=== PATIENT | male | born 2000 | race Caucasian/White ===

== ENCOUNTER 2022-03-03 14:49 | Emergency (ER) | payer OTHER, SELFPAY ==
[2022-03-03 14:55] VITALS: BP 124/75; PULSE 68; RESP 14; TEMP 37.1; O2SAT 100
--- NOTE | 2022-03-03 16:46 | ED.URI ---
HPI - URI/Sore Throat General Chief Complaint: Upper Respiratory Infection Stated Complaint: Cough headaches chills fatigue Time Seen by Provider: 03/03/22 16:45 Source: patient, RN notes reviewed and old records reviewed Mode of arrival: ambulatory Limitations: no limitations History of Present Illness HPI Narrative: 21 year old male presents to express care with complaints of headache, productive cough, hot flashes and sore throat and feeling weak for past 5 days. Patient denies any known fevers, has been taking Ibuprofen, NyQuil and cough drops for his symptoms. Patient reports that he has had COVID vaccinations X2 and also flu shot, reports had COVID in August of 2021. MD elicited complaint: cough, sore throat and other (headaches and feels weak) Onset (ago): day(s) (5) Pain scale (0-10): 6 Treatments prior to arrival: ibuprofen and other (NyQuil and cough drops) Related Data Home Medications Medication Instructions Recorded Confirmed fluoxetine 40 mg capsule 40 mg PO DAILY 03/03/22 03/03/22 Allergies Allergy/AdvReac Type Severity Reaction Status Date / Time No Known Allergies Allergy Verified 03/03/22 15:11 Review of Systems Review of Systems: CONSTITUTIONAL: Denies malaise, chills, sweats, or fever.reports feel weak and has had hot flashes EYES: Denies visual changes, redness, or discharge. ENT: Reports rhinorrhea, congestion, sinus pain, no otalgia positive for sore throat. CARDIOVASCULAR: Denies chest pain, palpitations, or edema. RESPIRATORY: Reports cough.? Denies dyspnea. GASTROINTESTINAL: Denies abdominal pain, nausea, vomiting, diarrhea SKIN: Denies rash or itching. MUSCULOSKELETAL: Denies myalgia. NEUROLOGIC:Reports headache. All systems reviewed & are unremarkable except as noted in HPI and below PMFSH Past Medical History Medical History (Updated 03/07/22 @ 08:32 by Yamilet Ray NP) Anxiety Asthma as child Surgical History Surgical History (Updated 03/07/22 @ 08:30 by Yamilet Ray NP) No history of previous surgery Social History Social History (Updated 03/07/22 @ 08:33 by Yamilet Ray NP) Smoking status: Never smoker Alcohol intake: unknown Substance use type: marijuana Living arrangements: with family Gender identity (if verbalized by the patient): Male Comments At time of signature, agree with nursing past medical, surgical, social and family history. There is no relevant family history pertinent to the presenting complaint Exam Narrative: GENERAL: Well-appearing, well-nourished, and in no acute distress. HEAD: Normocephalic EYES: PERRLA, conjunctivae clear ENT: Nares clear, turbinates edematous and erythematous, clear discharge. Mucous membranes moist. TM pearly waller with dull light reflex bilaterally; no tragal tenderness. Oropharynx erythematous without lesions. Tonsils not enlarged and without exudate, no drooling, no hoarseness, no trismus, uvula midline. post nasal drainage NECK: Supple. No lymphadenopathy CHEST: Clear to auscultation, breath sounds equal. No wheezing, rhonchi, rales, or stridor. No respiratory distress, speaks in full sentences.productive cough, SAO2 100% on room air HEART: Regular rate and rhythm. No murmur heard. SKIN: Warm, dry, no rash. NEURO: Alert and oriented x3. PSYCH: Normal mood and affect Course Course Emergency Course: Patient is aware of diagnosis, understands and agrees to treatment plan.? Anticipatory guidance given.? Patient agrees to follow-up as directed and is aware of reasons to seek care at the emergency department. Portions of this record may have been created with voice recognition software Level of Care: Express Care Visit Vital Signs Vital signs: Vital Signs Temperature 37.1 C 03/03/22 14:55 Pulse Rate 68 03/03/22 14:55 Respiratory Rate 14 03/03/22 14:55 Blood Pressure 124/75 03/03/22 14:55 Pulse Oximetry 100 03/03/22 14:55 Oxygen Delivery Kalina
== END 2022-03-03 17:01 | disposition home or self-care (01) ==
PROVIDERS: Emergency Provider Registered Nurse; PCP Family Medicine
DX: J06.9 Acute upper respiratory infection, unspecified (principal)
CPT/HCPCS: 87804; 99213; G0463

== ENCOUNTER 2022-05-26 10:48 | Emergency (ER) | payer OTHER, SELFPAY ==
[2022-05-26 10:53] VITALS: BP 120/67; PULSE 68; RESP 16; TEMP 37; O2SAT 100
[2022-05-26 11:08] VITALS: BP 120/67; PULSE 68; RESP 16; TEMP 37; O2SAT 100
--- NOTE | 2022-05-26 11:45 | ED.MALEGU ---
HPI - Male Genitourinary General Chief complaint: Urogenital-Male Stated complaint: abdominal pain; nausea, dysuria Time Seen by Provider: 05/26/22 11:46 Source: patient, RN notes reviewed and old records reviewed Mode of arrival: ambulatory Limitations: no limitations History of Present Illness HPI Narrative: 21 year old male with complaints of some abdominal pain in mid right sided abdomen, nausea and dysuria since awakening this morning. Patient reports that he has some frequency and voiding in small amount. Patient denies any visualized blood in urine, denies any fevers,chills or sweats. Patient rports no penis lesions or any penis discharge, denies any concern for STD's. Patient states that he has been taking Advil for his symptoms. MD Complaint: dysuria and other (abdominal discomfort) Onset (ago): hour(s) (this morning) Related Data Home Medications Medication Instructions Recorded Confirmed fluoxetine 40 mg capsule 40 mg PO DAILY 03/03/22 05/26/22 Allergies Allergy/AdvReac Type Severity Reaction Status Date / Time No Known Allergies Allergy Verified 05/26/22 11:08 Review of Systems Review of Systems: CONSTITUTIONAL: Denies fever, chills, or sweats. CARDIOVASCULAR: Denies chest pain, palpitations, or edema. RESPIRATORY: Denies cough or dyspnea. GASTROINTESTINAL:mid right lower abdominal pain, nausea,no vomiting, or diarrhea. GENITOURINARY: Reports dysuria, frequency, urgency. Denies flank pain or hematuria. SKIN: Denies rash or itching. MUSCULOSKELETAL: Denies back pain or myalgia. Denies CVA tenderness NEUROLOGIC: Denies headache All systems reviewed & are unremarkable except as noted in HPI and below [facility] Past Medical History Medical History (Updated 05/29/22 @ 07:06 by Yamilet Ray NP) Anxiety Asthma as child IBS (irritable bowel syndrome) Surgical History Surgical History (Updated 03/07/22 @ 08:30 by Yamilet Ray NP) No history of previous surgery Family History Family History (Updated 05/29/22 @ 07:06 by Yamilet Ray NP) Father Kidney stones Social History Social History (Updated 03/07/22 @ 08:33 by Yamilet Ray NP) Smoking status: Never smoker Alcohol intake: unknown Substance use type: marijuana Living arrangements: with family Gender identity (if verbalized by the patient): Male Comments At time of signature, agree with nursing past medical, surgical, social and family history. There is no relevant family history pertinent to the presenting complaint Exam Narrative: GENERAL: Well-appearing, well-nourished, and in no acute distress. HEAD: Normocephalic, atraumatic. NECK: Supple. CHEST: Clear to auscultation. No respiratory distress.SAO2 100% on room air HEART: Regular rate and rhythm. No murmur heard. Normal peripheral pulses. ABDOMEN: Soft, nontender on palpation, no McBurney point tenderness, nondistended, normal active bowel sounds. No CVA tenderness, reports dysuria EXTREMITIES: Normal range of motion. No edema. SKIN: Warm, dry, no rash. NEURO: No focal deficits. Alert and oriented x3. Course Course Emergency Course: Patient is aware of diagnosis, understands and agrees to treatment plan.? Anticipatory guidance given.? Patient agrees to follow-up as directed and is aware of reasons to seek care at the emergency department. Portions of this record may have been created with voice recognition software Level of Care: Express Care Visit Vital Signs Vital signs: Vital Signs Temperature 37.0 C 05/26/22 10:53 Pulse Rate 68 05/26/22 10:53 Respiratory Rate 16 05/26/22 10:53 Blood Pressure 120/67 05/26/22 10:53 Pulse Oximetry 100 05/26/22 10:53 Oxygen Delivery Room Air 05/26/22 10:53 Temperature 37.0 C 05/26/22 11:08 Pulse Rate 68 05/26/22 11:08 Respiratory Rate 16 05/26/22 11:08 Blood Pressure 120/67 05/26/22 11:08 Pulse Oximetry 100 05/26/22 11:08 Oxygen Delivery Room Air 05/26/22 11:08
== END 2022-05-26 12:03 | disposition home or self-care (01) ==
PROVIDERS: Emergency Provider Registered Nurse; PCP Family Medicine
DX: R30.0 Dysuria (principal); R10.9 Unspecified abdominal pain
CPT/HCPCS: 81003; 87086; 99213; G0463

== ENCOUNTER 2022-08-04 09:48 | Emergency (ER) | payer OTHER, SELFPAY ==
[2022-08-04 09:53] VITALS: BP 120/65; PULSE 54; RESP 14; TEMP 36.6; O2SAT 100
--- NOTE | 2022-08-04 10:05 | ED.NAVMDI ---
HPI - Nausea/Vomiting/Diarrhea General Chief complaint: Nausea/Vomiting/Diarrhea Stated complaint: Nausea/Diarrhea Time Seen by Provider: 08/04/22 10:06 Source: patient and RN notes reviewed History of Present Illness HPI Narrative: Patient is a 22-year-old male who presents to urgent care with complaints of nausea and diarrhea. Patient states he woke up with the pain this morning at 4:00 a.m. and symptoms have nearly resolved with some slight side pain. Patient believes he has food poisoning from eating [employer] and states that he needs a work note. Patient has been taking Advil for the pain. Currently denies any nausea or fever. No other acute complaints. No acute distress noted. Patient aware of the plan of care. Some parts of this dictation were generated by voice recognition software and may contain typographical and/or grammatical inaccuracies. Related Data Allergies Allergy/AdvReac Type Severity Reaction Status Date / Time No Known Allergies Allergy Verified 08/04/22 10:00 Review of Systems Review of Systems: CONSTITUTIONAL: Denies fever, chills, or sweats. EYES: Denies visual changes, redness, or discharge. ENT: Denies rhinorrhea, congestion, sore throat, or otalgia. CARDIOVASCULAR: Denies chest pain, palpitations, or edema. RESPIRATORY: Denies cough or dyspnea. GASTROINTESTINAL: Reports of mild abdominal discomfort with resolved nausea and diarrhea GENITOURINARY: Denies dysuria or hematuria. SKIN: Denies rash or itching. MUSCULOSKELETAL: Denies back pain, joint pain, or myalgia. NEUROLOGIC: Denies headache, numbness, or weakness. All other systems reviewed are negative, except as documented in HPI. [facility] Past Medical History Medical History (Updated 08/04/22 @ 10:36 by SARAHI Angeles) Anxiety Asthma as child IBS (irritable bowel syndrome) Surgical History Surgical History (Updated 03/07/22 @ 08:30 by Yamilet Ray NP) No history of previous surgery Family History Family History (Updated 05/29/22 @ 07:06 by Yamilet Ray NP) Father Kidney stones Social History Social History (Updated 03/07/22 @ 08:33 by Yamilet Ray NP) Smoking status: Never smoker Alcohol intake: unknown Substance use type: marijuana Living arrangements: with family Gender identity (if verbalized by the patient): Male Comments At the time of my signature, I reviewed and agree with the nursing past medical, surgical, social, and family history. There is no relevant family history pertinent to the patient complaint. Exam Narrative: GENERAL: This is a well-nourished, well-developed patient, in no apparent distress. HEAD: normocephalic, atraumatic. EYES: PERRL. Sclera clear/white. Vision is grossly intact. EARS: External ears normal NOSE: External nose normal with no obvious nasal discharge, nares without redness, no rhinorrhea. THROAT: Mucous membranes moist NECK: Neck supple GASTROINTESTINAL: Abdomen soft, non-tender, nondistended. Bowel sounds are hyperactive. SKIN: warm, intact with no suspicious lesions or rash, good texture and turgor. NEURO: awake, alert, and oriented to person, place and time. There were no obvious focal neurologic abnormalities. EXTREMITIES: No clubbing, cyanosis, or edema. Course Course Level of Care: Express Care Visit Vital Signs Vital signs: Vital Signs Temperature 97.8 F 08/04/22 09:53 Pulse Rate 54 L 08/04/22 09:53 Respiratory Rate 14 08/04/22 09:53 Blood Pressure 120/65 08/04/22 09:53 Pulse Oximetry 100 08/04/22 09:53 Oxygen Delivery Room Air 08/04/22 09:53 Temperature 97.8 F 08/04/22 09:53 Pulse Rate 54 L 08/04/22 09:53 Respiratory Rate 14 08/04/22 09:53 Blood Pressure 120/65 08/04/22 09:53 Pulse Oximetry 100 08/04/22 09:53 Oxygen Delivery Room Air 08/04/22 09:53 Reviewed MDM - Nausea/Vomiting/Diarrhea MDM Narrative Medical decision making narrative: Advised patient to take over
== END 2022-08-04 10:43 | disposition home or self-care (01) ==
PROVIDERS: Emergency Provider Nurse Practitioner Family; PCP Family Medicine
DX: K52.9 Noninfective gastroenteritis and colitis, unspecified (principal)
CPT/HCPCS: 99211; G0463

== ENCOUNTER 2022-08-10 11:49 | Emergency (ER) | payer OTHER, SELFPAY ==
--- NOTE | 2022-08-10 11:53 | ED.NAVMDI ---
HPI - Nausea/Vomiting/Diarrhea General Chief complaint: Abdominal Pain Stated complaint: abdo pain/diarrhea Time Seen by Provider: 08/10/22 11:53 Source: patient and RN notes reviewed History of Present Illness HPI Narrative: Patient is a 22-year-old male who presents to urgent care with complaints of right lower abdominal discomfort with diarrhea. Patient states he has had loose stools approximately 4 times since last night. Patient states that he has not had any nausea or vomiting or fever. States he did take Pepto-Bismol with some relief. States the abdominal pain is much less this morning that the diarrhea seems to be more frequently. Patient states that he did eat moonlight chicken last night. No other acute complaints. No acute distress noted. Patient aware of the plan of care. Some parts of this dictation were generated by voice recognition software and may contain typographical and/or grammatical inaccuracies. Related Data Allergies Allergy/AdvReac Type Severity Reaction Status Date / Time No Known Allergies Allergy Verified 08/04/22 10:00 Review of Systems Review of Systems: CONSTITUTIONAL: Denies fever, chills, or sweats. EYES: Denies visual changes, redness, or discharge. ENT: Denies rhinorrhea, congestion, sore throat, or otalgia. CARDIOVASCULAR: Denies chest pain, palpitations, or edema. RESPIRATORY: Denies cough or dyspnea. GASTROINTESTINAL: Reports of right lower discomfort loose stools GENITOURINARY: Denies dysuria or hematuria. SKIN: Denies rash or itching. MUSCULOSKELETAL: Denies back pain, joint pain, or myalgia. NEUROLOGIC: Denies headache, numbness, or weakness. All other systems reviewed are negative, except as documented in HPI. [facility] Past Medical History Medical History (Updated 08/10/22 @ 12:12 by SARAHI Angeles) Anxiety Asthma as child IBS (irritable bowel syndrome) Surgical History Surgical History (Updated 03/07/22 @ 08:30 by Yamilet Ray NP) No history of previous surgery Family History Family History (Updated 05/29/22 @ 07:06 by Yamilet Ray NP) Father Kidney stones Social History Social History (Updated 03/07/22 @ 08:33 by Yamilet Ray NP) Smoking status: Never smoker Alcohol intake: unknown Substance use type: marijuana Living arrangements: with family Gender identity (if verbalized by the patient): Male Comments At the time of my signature, I reviewed and agree with the nursing past medical, surgical, social, and family history. There is no relevant family history pertinent to the patient complaint. Exam Narrative: GENERAL: This is a well-nourished, well-developed patient, in no apparent distress. HEAD: normocephalic, atraumatic. EYES: PERRL. Sclera clear/white. Vision is grossly intact. EARS: External ears normal NOSE: External nose normal with no obvious nasal discharge, nares without redness, no rhinorrhea. THROAT: Mucous membranes moist NECK: Neck supple, RESPIRATORY: Clear to auscultation. Breath sounds equal bilaterally. No wheezes, rales, or rhonchi. GASTROINTESTINAL: Abdomen soft, mild right lower quadrant tenderness, nondistended. Bowel sounds are hyper active. No guarding. SKIN: warm, intact with no suspicious lesions or rash, good texture and turgor. NEURO: awake, alert, and oriented to person, place and time. There were no obvious focal neurologic abnormalities. EXTREMITIES: No clubbing, cyanosis, or edema. Course Course Level of Care: Express Care Visit Vital Signs Vital signs: Vital Signs Temperature 98.4 F 08/10/22 11:54 Pulse Rate 81 08/10/22 11:54 Respiratory Rate 20 08/10/22 11:54 Blood Pressure 148/85 H 08/10/22 11:54 Pulse Oximetry 100 08/10/22 11:54 Oxygen Delivery Room Air 08/10/22 11:54 Temperature 98.4 F 08/10/22 11:54 Pulse Rate 81 08/10/22 11:54 Respiratory Rate 20 08/10/22 11:54 Blood Pressure 148/85 H 08/10/22 11:54 Pulse Oximetry 100
[2022-08-10 11:54] VITALS: BP 148/85; PULSE 81; RESP 20; TEMP 36.9; O2SAT 100
== END 2022-08-10 12:20 | disposition home or self-care (01) ==
PROVIDERS: Emergency Provider Nurse Practitioner Family; PCP Family Medicine
DX: K52.9 Noninfective gastroenteritis and colitis, unspecified (principal)
CPT/HCPCS: 99211; 99213; G0463

== ENCOUNTER 2022-09-27 12:34 | Emergency (ER) | payer OTHER, SELFPAY ==
[2022-09-27 12:42] VITALS: BP 147/67; PULSE 74; RESP 16; TEMP 36.9; O2SAT 100
--- NOTE | 2022-09-27 12:51 | ED.GENADULT ---
HPI - General Adult General Chief complaint: Headache Stated complaint: migraine Time Seen by Provider: 09/27/22 12:51 Source: patient Mode of arrival: ambulatory Limitations: no limitations History of Present Illness [facility] narrative: 22-year-old male presents with complaint of headache, pulsating sensation behind right eye this morning upon wakening. He states he called off work. Took ibuprofen and symptoms have now resolved. He denies nausea vomiting. No vision changes. No photosensitivity. He is alert oriented. Ambulatory with steady gait. He is requesting a work note to return to work tomorrow. He has no history of migraines. All systems reviewed and negative except as noted above. Related Data Home Medications Medication Instructions Recorded Confirmed No Home Medications 09/27/22 09/27/22 Allergies Allergy/AdvReac Type Severity Reaction Status Date / Time No Known Allergies Allergy Verified 09/27/22 12:59 Review of Systems Review of Systems: CONSTITUTIONAL: Denies fever, chills, or sweats. EYES: Denies visual changes, redness, or discharge. ENT: Denies rhinorrhea, congestion, sore throat, or otalgia. CARDIOVASCULAR: Denies chest pain, palpitations, or edema. RESPIRATORY: Denies cough or dyspnea. GASTROINTESTINAL: Denies abdominal pain, nausea, vomiting, or diarrhea. GENITOURINARY: Denies dysuria or hematuria. SKIN: Denies rash or itching. MUSCULOSKELETAL: Denies back pain, joint pain, or myalgia. NEUROLOGIC: Reports headache. Denies numbness, or weakness. PSYCHIATRIC: Denies anxiety or depression. All other systems reviewed are negative, except as documented in HPI. [facility] Past Medical History Medical History (Updated 09/27/22 @ 13:02 by Pricilla Whitfield NP) Anxiety Asthma as child IBS (irritable bowel syndrome) Surgical History Surgical History (Updated 03/07/22 @ 08:30 by Yamilet Ray NP) No history of previous surgery Family History Family History (Updated 05/29/22 @ 07:06 by Yamilet Ray NP) Father Kidney stones Social History Social History (Updated 03/07/22 @ 08:33 by Yamilet Ray NP) Smoking status: Never smoker Alcohol intake: unknown Substance use type: marijuana Living arrangements: with family Gender identity (if verbalized by the patient): Male Comments At time of signature, agree with nursing past medical, surgical, social and family history. There is no relevant family history pertinent to the presenting complaint. Exam Narrative: GENERAL: This is a well-nourished, well-developed patient, in no apparent distress. HEAD: normocephalic, atraumatic. EYES: PERRL. Sclera clear/white. Vision is grossly intact. Normal extraocular movements. EARS: External ears normal, auditory canals clear and without drainage, TMs normal without perforation. Hearing grossly intact. NOSE: External nose normal with no obvious nasal discharge, nares without redness, no rhinorrhea. THROAT: Mucous membranes moist, posterior pharynx clear. NECK: Neck supple, non-tender without lymphadenopathy, masses or thyromegaly. CARDIOVASCULAR: Regular rate and rhythm without murmurs, gallops, or rubs. RESPIRATORY: Clear to auscultation. Breath sounds equal bilaterally. No wheezes, rales, or rhonchi. SKIN: warm, Dry, intact with no suspicious lesions or rash, good texture and turgor. NEURO: awake, alert, and oriented to person, place and time. There were no obvious focal neurologic abnormalities. EXTREMITIES: No joint tenderness, effusion, or edema noted. Course Course Level of Care: Express Care Visit Vital Signs Vital signs: Vital Signs Temperature 36.9 C 09/27/22 12:42 Pulse Rate 74 09/27/22 12:42 Respiratory Rate 16 09/27/22 12:42 Blood Pressure 147/67 H 09/27/22 12:42 Pulse Oximetry 100 09/27/22 12:42 Oxygen Delivery Room Air 09/27/22 12:42 Temperature 36.9 C 09/27/22 12:42 Pulse Rate 74 09/27/22 12:42 Respira
== END 2022-09-27 13:05 | disposition home or self-care (01) ==
PROVIDERS: Emergency Provider Nurse Practitioner Family; PCP Family Medicine
DX: R51.9 Headache, unspecified (principal); F12.90 Cannabis use, unspecified, uncomplicated
CPT/HCPCS: 99213; G0463

== ENCOUNTER 2022-10-15 14:39 | Emergency (ER) | payer OTHER, SELFPAY ==
--- NOTE | 2022-10-15 14:44 | ED.URI ---
HPI - URI/Sore Throat General Chief Complaint: Upper Respiratory Infection Stated Complaint: head heather and drainage Time Seen by Provider: 10/15/22 14:45 Source: patient Mode of arrival: ambulatory Limitations: no limitations History of Present Illness HPI Narrative: Ubaldo is a 22-year-old male patient presenting to the clinic today with complaints of head congestion, sore throat, nasal drainage that began last night. States he took ibuprofen for headache. He reports has a lot of postnasal drip and nasal drainage today. No fever or, chills, body aches, chest pain, or shortness of breath. MD elicited complaint: sore throat and nasal congestion Related Data Home Medications Medication Instructions Recorded Confirmed No Home Medications 09/27/22 10/15/22 Allergies Allergy/AdvReac Type Severity Reaction Status Date / Time No Known Allergies Allergy Verified 10/15/22 14:48 Review of Systems Review of Systems: Pertinent positives per HPI. Patient denies any fever, chills, rash, headache, visual changes, dizziness, shortness of breath, chest pain, palpitations, nausea, vomiting, diarrhea, constipation, abdominal pain, or any urinary issues. PMFSH Past Medical History Medical History Anxiety Asthma as child IBS (irritable bowel syndrome) Surgical History Surgical History No history of previous surgery Family History Family History Father Kidney stones Social History Social History Smoking status: Never smoker Alcohol intake: unknown Substance use type: marijuana Living arrangements: with family Gender identity (if verbalized by the patient): Male Comments At the time of my signature, I reviewed and agree with the nursing past medical, surgical, social, and family history. There is no relevant family history pertinent to the patient complaint. Exam Narrative: General: Well-developed, well nourished, in no apparent distress Head: Normocephalic, atraumatic Eyes: Pupils equally round and reactive to light bilaterally, EOM intact, sclera and conjunctive clear, no discharge, lids normal Ears: TMs intact and congested, ear canals clear, no drainage, grossly hearing normal. Nose: Nares patent, clear nasal discharge, no inflammation, no sinus tenderness. Mouth: Oral pharynx red with postnasal drip without lesions or masses, good dentition, MMM. Neck: Supple, trachea midline, no enlargement of anterior or posterior cervical nodes, no thyroid masses or goiter palpable. Cardio: Regular rate and rhythm, s1 and s2 normal, no murmur appreciated. Resp: Clear to auscultation bilaterally, no rhonchi, rales, wheezing or rubs Course Course Emergency Course: Portions of this record may have been created with voice recognition software. Level of Care: Express Care Visit Vital Signs Vital signs: Vital signs reviewed MDM - URI/Sore Throat MDM Narrative Medical decision making narrative: At the time of visit patient is resting comfortably on the exam table. Strep screen was obtained was negative in the clinic today. I suspect patient has URI pharyngitis. Supportive measures were discussed with the patient he voiced understanding discharge instructions agrees to treatment plan. Differential Diagnosis Differential diagnosis: Likely upper respiratory infection, otitis media, sinusitis, viral infection, bronchitis, influenza, pharyngitis and other (COVID) Discharge Plan Discharge Clinical Impression: PND (post-nasal drip) Upper respiratory infection Qualifiers: URI type: unspecified URI Qualified Code(s): J06.9 - Acute upper respiratory infection, unspecified Pharyngitis Qualifiers: Pharyngitis/tonsillitis etiology: unspecified etiology Qu
[2022-10-15 14:45] VITALS: BP 129/71; PULSE 59; RESP 20; TEMP 36.9; O2SAT 100
== END 2022-10-15 15:01 | disposition home or self-care (01) ==
PROVIDERS: Emergency Provider Nurse Practitioner Family; PCP Family Medicine
DX: R09.82 Postnasal drip (principal); J06.9 Acute upper respiratory infection, unspecified; J02.9 Acute pharyngitis, unspecified
CPT/HCPCS: 87081; 87880; 99213; G0463

== ENCOUNTER 2022-11-09 14:02 | Emergency (ER) | payer OTHER, SELFPAY ==
--- NOTE | 2022-11-09 14:05 | ED.URI ---
HPI - URI/Sore Throat General Stated Complaint: Sore Throat/Nausea Time Seen by Provider: 11/09/22 14:05 Related Data Home Medications Medication Instructions Recorded Confirmed No Home Medications 09/27/22 10/15/22 Allergies Allergy/AdvReac Type Severity Reaction Status Date / Time No Known Allergies Allergy Verified 10/15/22 14:48 [facility] Past Medical History Medical History Anxiety Asthma as child IBS (irritable bowel syndrome) Surgical History Surgical History No history of previous surgery Family History Family History Father Kidney stones Social History Social History Smoking status: Never smoker Alcohol intake: unknown Substance use type: marijuana Living arrangements: with family Gender identity (if verbalized by the patient): Male Discharge Plan Discharge Prescriptions: No Action No Home Medications Follow-up/Referrals: Parveen,Keyur Swain MD [Primary Care Provider] -
--- NOTE | 2022-11-09 14:07 | ED.GENADULT ---
HPI - General Adult General Chief complaint: Upper Respiratory Infection Stated complaint: Sore Throat/Nausea Time Seen by Provider: 11/09/22 14:05 Source: patient, RN notes reviewed and old records reviewed Mode of arrival: ambulatory Limitations: no limitations History of Present Illness HPI narrative: 22-year-old male presents to the [facility] with complaints of sore throat that started last night. States that he called in sick to work today and needs a work note. Took Robitussin 1 time Related Data Allergies Allergy/AdvReac Type Severity Reaction Status Date / Time No Known Allergies Allergy Verified 10/15/22 14:48 Review of Systems Review of Systems: All systems reviewed & are unremarkable except as noted in HPI and below Constitutional: Constitutional: Reports no additional constitutional complaints Eyes: Eyes: Reports no additional eye complaints ENT: Reports as per HPI and Reports sore throat Cardiovascular: Cardiovascular: Reports no additional cardiovascular complaints, Denies chest pain and Denies dyspnea Respiratory: Respiratory: Reports no additional respiratory complaints, Denies chest congestion, Denies cough and Denies dyspnea Gastrointestinal: Gastrointestinal: Reports no additional gastrointestinal complaints, Denies abdominal pain, Denies nausea and Denies vomiting Musculoskeletal: Musculoskeletal: Reports no additional musculoskeletal complaints Integumentary/Breasts: Skin/Breast: Reports system reviewed and no additional complaints, except as docu Neurologic: Reports system reviewed and no additional complaints, except as documented Psychiatric: Psychiatric: Reports no additional psychiatric complaints Allergic/Immunologic: Allergic/Immunologic: Reports no additional allergic/immunologic complaints [facility] Past Medical History Medical History Anxiety Asthma as child IBS (irritable bowel syndrome) Surgical History Surgical History No history of previous surgery Family History Family History Father Kidney stones Social History Social History Smoking status: Never smoker Alcohol intake: unknown Substance use type: marijuana Living arrangements: with family Gender identity (if verbalized by the patient): Male Comments At the time of my signature, I reviewed and agree with the nursing past medical, surgical, social, and family history. There is no relevant family history pertinent to the patient complaint. Exam Const: General: cooperative, healthy appearing, comfortable, no acute distress, well developed, alert and well nourished Nutritional Appearance: well nourished Orientation/consciousness: patient oriented x3 Limitations: no limitations HENMT: Head: normal to inspection Ears: hearing grossly normal bilaterally, external ears normal, TM's normal bilaterally and EAC's normal Face/Nose/Sinus: Normal external nose present, Normal nares present, Normal nasal mucous membranes and turbinates present and normal facial exam Face and sinus: normal facial exam Mouth: Yes Normal oral and palatal mucosa present, Yes lip normal and Yes moist mucous membranes Throat: posterior oropharynx normal, uvula midline and postnasal drainage Eyes: General: appearance normal, both eyes and all related structures Alignment and Position: alignment normal Periorbital: periorbital findings normal Pupils: Equal, round and reactive pupils present EOM: EOMs intact bilaterally Neck: Neck: normal visual inspection, full ROM, no lymphadenopathy and no meningeal signs Chest: Chest palpation & inspection: normal inspection of the chest Resp: Effort & Inspection: normal respiratory effort and able to speak in complete sentences Auscultation: clear to auscultation bilaterally, no crack
[2022-11-09 14:10] VITALS: BP 146/71; PULSE 73; RESP 18; TEMP 36.2; O2SAT 100
== END 2022-11-09 14:33 | disposition home or self-care (01) ==
PROVIDERS: Emergency Provider Nurse Practitioner; PCP Family Medicine
DX: J02.9 Acute pharyngitis, unspecified (principal); F12.90 Cannabis use, unspecified, uncomplicated
CPT/HCPCS: 87081; 87880; 99213; G0463

== ENCOUNTER 2024-01-05 08:05 | Emergency (ER) | payer OTHER, SELFPAY ==
[2024-01-05 08:16] VITALS: BP 131/76; PULSE 69; RESP 20; TEMP 36.8; O2SAT 100
--- NOTE | 2024-01-05 08:18 | ED.UPPEXIN ---
HPI - Extremity Injury (Upper) General Chief Complaint: Extremity Injury, Upper Stated Complaint: Right Wrist Injury Time Seen by Provider: 01/05/24 08:22 Source: patient, RN notes reviewed and old records reviewed Mode of arrival: ambulatory Limitations: no limitations History of Present Illness HPI narrative: 23 year old male who presents to [facility] care with complaints of right wrist pain which started after work on evening. 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 MD complaint: injury to: right and wrist Onset (ago): day(s) (3) Handedness: right Severity scale (1-10): 6 Treatments prior to arrival: other (Tylenol) Related Data Allergies Allergy/AdvReac Type Severity Reaction Status Date / Time No Known Allergies Allergy Verified 10/15/22 14:48 Review of Systems Review of Systems: CONSTITUTIONAL: Denies fever, chills, or sweats. EYES: Denies visual changes, redness, or discharge. ENT: Denies rhinorrhea, congestion, sore throat, or otalgia. CARDIOVASCULAR: Denies chest pain, palpitations, or edema. RESPIRATORY: Denies cough or dyspnea. GASTROINTESTINAL: Denies abdominal pain, nausea, vomiting, or diarrhea. GENITOURINARY: Denies dysuria or hematuria. SKIN: Denies rash or itching. MUSCULOSKELETAL: Denies back pain,positive for right wrist pain with some intermittent tingling and numbness to his hand, or myalgia. NEUROLOGIC: Denies headache, numbness, or weakness. PSYCHIATRIC: Denies anxiety or depression. All systems reviewed & are unremarkable except as noted in HPI and below PMFSH Past Medical History Medical History Anxiety Asthma as child IBS (irritable bowel syndrome) Surgical History Surgical History No history of previous surgery Family History Family History Father Kidney stones Social History Social History Smoking status: Never smoker Alcohol intake: unknown Substance use type: marijuana Living arrangements: with family Gender identity (if verbalized by the patient): Male Comments At time of signature, agree with nursing past medical, surgical, social and family history. There is no relevant family history pertinent to the presenting complaint Exam Narrative: GENERAL: Well-appearing, well-nourished, and in no acute distress. HEAD: Normocephalic, atraumatic. EYES: PERRLA and EOMI. ENT: Nares clear, no rhinorrhea or epistaxis. Mucous membranes moist.TM's normal throat without redness or swelling NECK: Supple. no lymphadenopathy CHEST: Clear to auscultation. No respiratory distress.SAO2 100% on room air HEART: Regular rate and rhythm. No murmur heard. Normal peripheral pulses. ABDOMEN: Soft, nontender, nondistended, normal active bowel sounds. EXTREMITIES: Normal range of motion. No edema.negative Tinel and Phalen test, full mobility of right wrist with some increased discomfort with flexion of wrist, states tingling and numbness is intermittent and does go in a certain pattern in hand or fingers, Strong right radial pulse with nail beds of right fingers having brisk capillary refill. SKIN: Warm, dry, no rash. NEURO: No focal deficits. Alert and oriented x3. Course Course Emergency Course: Patient is aware of diagnosis, understands and agrees to treatment plan.? Anticipatory guidance given.? Patient agrees to follow-up as directed and is aware of reasons to seek care at the emergency department. Portions of this record may have been created with voice recognition software Level of Care: Express Care Visit Vital Signs
== END 2024-01-05 08:44 | disposition home or self-care (01) ==
PROVIDERS: Emergency Provider Registered Nurse; PCP Family Medicine
DX: M77.8 Other enthesopathies, not elsewhere classified (principal)
CPT/HCPCS: 99213; G0463

== ENCOUNTER 2024-01-31 09:16 | Emergency (ER) | payer OTHER, SELFPAY ==
[2024-01-31 09:26] VITALS: BP 133/60; PULSE 73; RESP 20; TEMP 37.2; O2SAT 100
[2024-01-31 10:26] LABS: EDSTREPNEGPOS1 Negative (Negative)
--- NOTE | 2024-01-31 10:32 | ED.URI ---
HPI - URI/Sore Throat General Chief Complaint: Upper Respiratory Infection Stated Complaint: Congestion/Sore Throat/Eye Problem Time Seen by Provider: 01/31/24 10:20 Source: patient, RN notes reviewed and old records reviewed Mode of arrival: ambulatory Limitations: no limitations History of Present Illness HPI Narrative: 23-year-old male who presents to [facility] Care with complaints head congestion with nasal drainage starting yesterday with sore throat. Patient states he has taken some Tylenol for his discomfort, states has felt feverish but denies any chills or sweats or any body aches. Patient denies any acute cough or any shortness of breath with no tachypnea and SAO2 100% on room air. MD elicited complaint: sore throat, rhinorrhea and nasal congestion Pertinent past history: asthma (as child) Onset (ago): day(s) (2) Pain scale (0-10): 6 Able to tolerate fluids by mouth: Yes Treatments prior to arrival: acetaminophen Related Data Allergies Allergy/AdvReac Type Severity Reaction Status Date / Time No Known Allergies Allergy Verified 10/15/22 14:48 Review of Systems Review of Systems: CONSTITUTIONAL: Reports malaise, no chills, sweats, has felt feverish EYES: Denies visual changes, redness, or discharge. ENT: Reports rhinorrhea, congestion, sinus pain no otalgia and positive for sore throat. CARDIOVASCULAR: Denies chest pain, palpitations, or edema. RESPIRATORY: Reports no acute cough.? Denies dyspnea. GASTROINTESTINAL: Denies abdominal pain, nausea, vomiting, diarrhea SKIN: Denies rash or itching. MUSCULOSKELETAL: Denies myalgia. NEUROLOGIC: Denies headache. All systems reviewed & are unremarkable except as noted in HPI and below PMFSH Past Medical History Medical History Anxiety Asthma as child IBS (irritable bowel syndrome) Surgical History Surgical History No history of previous surgery Family History Family History Father Kidney stones Social History Social History Smoking status: Never smoker Alcohol intake: unknown Substance use type: marijuana Living arrangements: with family Gender identity (if verbalized by the patient): Male Comments At time of signature, agree with nursing past medical, surgical, social and family history. There is no relevant family history pertinent to the presenting complaint Exam Narrative: GENERAL: Well-appearing, well-nourished, and in no acute distress. HEAD: Normocephalic EYES: PERRLA, conjunctivae clear ENT: Nares clear, turbinates edematous and erythematous, clear discharge, sinus pressure. Mucous membranes moist. TM pearly waller with dull light reflex bilaterally; no tragal tenderness. Oropharynx erythematous without lesions. Tonsils red not enlarged and without exudate, no drooling, no hoarseness, no trismus, uvula midline.post nasal drainage noted NECK: Supple. No lymphadenopathy CHEST: Clear to auscultation, breath sounds equal. No wheezing, rhonchi, rales, or stridor. No respiratory distress, speaks in full sentences.no acute cough no tachypnea, SAO2 100% on room air HEART: Regular rate and rhythm. No murmur heard. SKIN: Warm, dry, no rash. NEURO: Alert and oriented x3. PSYCH: Normal mood and affect Course Course Emergency Course: Patient is aware of diagnosis, understands and agrees to treatment plan.? Anticipatory guidance given.? Patient agrees to follow-up as directed and is aware of reasons to seek care at the emergency department. Portions of this record may have been created with voice recognition software Level of Care: Express Care Visit Vital Signs Vital signs: Vital Signs Temperature 37.2 C 01/31/24 09:26 Pulse Rate 73 01/31/24 09:26 Respiratory Rate 20 01/31/24 09:26 Blood Pressure 133/60 01/31/24 09:26 Pulse Oximetry 100 01/31/24 09:26 Oxygen Delivery Room Air 01/31/24 09:26 Temperature 37.2 C 01/31/24 09:26 Pulse Rate 73 01/31/24 09:26 Respiratory Rate 20 01/31/24 09:26 Blood Pressure 133/60 01/31/24 09:26 Pulse Oximetry 100 01/31/24 09:26 Oxygen Delivery Room Air 01/31/24 09:26 Reviewed MDM - URI/Sore Throat MDM Narrative Medical decision making narrative: Differential diagnosis considered: [place] virus, strep pharyngitis, allergic rhinitis, upper respiratory tract infection, sinusitis, rhinosinusitis, nasopharyngitis. viral pharyngitis, otitis media, otitis externa, pneumonia, bronchitis, viral cough syndrome, viral syndrome, and influenza.? Exam findings show no acute concerns or changes; patient is non-toxic appearing and is in no distress.? Patient is appropriate for outpatient treatment and follow-up. Differential Diagnosis Differential diagnosis: Likely upper respiratory infection, viral infection, pharyngitis and other (Strep pharyngitis) Medical Records Attestation: I reviewed the patient's medical records. Lab Data Attestation: I reviewed the patient's lab results. Lab results narrative: Strep screen negative, culture sent Labs: Lab Results 01/31/24 Range/Units 10:14 POC Grp A Strep Screen Negative (Negative) reviewed Critical Care Time Critical Care Time Critical Care Time: No Discharge Plan Discharge Clinical Impression: Pharyngitis Qualifiers: Pharyngitis/tonsillitis etiology: unspecified etiology Qualified Code(s): J02.9 - Acute pharyngitis, unspecified Patient Disposition: Home, Self-Care Condition: Stable Instructions: Pharyngitis (ED) Additional Instructions: Increase fluids especially juices and water [id number] cough and cold medicine of your choice for your symptoms Zyrtec Claritin or Jessica daily Tylenol or ibuprofen for any fever pain Steroids as directed--take with food heat to the face 20-30 minutes 4-6 times a day for pain Salt water gargles, throat lozenges or throat sprays as desired Your strep test today was negative. A throat culture will be sent to the laboratory for further testing. IF the test is positive, you will receive a phone call within 48 hours and an appropriate antibiotic will be initiated at that time. If your symptoms persist, change or worsen significantly before you can contact your personal physician then please, without delay, go to the emergency department for further evaluation. Follow-up with PCP in 7-10 days or sooner if needed Follow up with PCP soon in regards to your blood pressure which is elevated above threshold for referral. Blood pressure above 120/80 may indicate pre-hypertension. 133/60 Prescriptions: New methylprednisolone [Medrol (Bernardino)] 4 mg tablets,dose pack See Rx Instructions .ROUTE .COMPLEX Qty: 21 0RF Rx Instructions: orally per package directions loratadine [Claritin] 10 mg tablet 10 mg PO DAILY Qty: 20 0RF Follow-up/Referrals: Parveen,Keyur Swain MD [Primary Care Provider] - Stand Alone Forms: Work/School Release IP Time of Disposition: 10:43 Quality Jae Coma Scale Eyes: Open Verbal: Oriented and Alert Motor: Follows Commands [place] Coma Total Score: 15
== END 2024-01-31 10:48 | disposition home or self-care (01) ==
PROVIDERS: Emergency Provider Registered Nurse; PCP Family Medicine
DX: J02.9 Acute pharyngitis, unspecified (principal); F12.90 Cannabis use, unspecified, uncomplicated
CPT/HCPCS: 87081; 87880; 99213; G0463

== ENCOUNTER 2024-05-05 13:16 | Emergency (ER) | payer SELFPAY ==
[2024-05-05 13:26] VITALS: BP 141/64; PULSE 78; RESP 16; TEMP 37.1; O2SAT 100
--- NOTE | 2024-05-05 13:34 | ED_ITS ---
HPI - General Adult General Chief complaint: Dizziness Stated complaint: Nausea/Dizziness Time Seen by Provider: 05/05/24 13:34 Source: patient Mode of arrival: ambulatory Limitations: no limitations History of Present Illness HPI narrative: 23-year-old male presents for a work note. Patient states that he had nausea, dizziness and fatigue over the weekend. Symptoms resolved. Mist to days of work. Needs work note to return. Patient is well-appearing. All systems reviewed and negative except as noted above. Related Data Allergies Allergy/AdvReac Type Severity Reaction Status Date / Time No Known Allergies Allergy Verified 10/15/22 14:48 Review of Systems Review of Systems: CONSTITUTIONAL: Denies fever, chills, or sweats. Reports fatigue. EYES: Denies visual changes, redness, or discharge. ENT: Denies rhinorrhea, congestion, sore throat, or otalgia. CARDIOVASCULAR: Denies chest pain, palpitations, or edema. RESPIRATORY: Denies cough or dyspnea. GASTROINTESTINAL: Denies abdominal pain, vomiting, or diarrhea. Reports nausea. GENITOURINARY: Denies dysuria or hematuria. SKIN: Denies rash or itching. MUSCULOSKELETAL: Denies back pain, joint pain, or myalgia. NEUROLOGIC: Denies headache, numbness, or weakness. Reports dizziness. PSYCHIATRIC: Denies anxiety or depression. All other systems reviewed are negative, except as documented in HPI. PMFSH Past Medical History Medical History Anxiety Asthma as child IBS (irritable bowel syndrome) Surgical History Surgical History No history of previous surgery Family History Family History Father Kidney stones Social History Social History Smoking status: Never smoker Alcohol intake: unknown Substance use type: marijuana Living arrangements: with family Gender identity (if verbalized by the patient): Male Comments At time of signature, agree with nursing past medical, surgical, social and family history. There is no relevant family history pertinent to the presenting complaint. Exam Narrative: GENERAL: This is a well-nourished, well-developed patient, in no apparent distress. HEAD: normocephalic, atraumatic. EYES: PERRL. Sclera clear/white. Vision is grossly intact. EARS: External ears normal, auditory canals clear and without drainage, TMs normal without perforation. Hearing grossly intact. NOSE: External nose normal with no obvious nasal discharge, nares without redness, no rhinorrhea. THROAT: Mucous membranes moist, posterior pharynx clear. NECK: Neck supple, non-tender without lymphadenopathy, masses or thyromegaly. CARDIOVASCULAR: Regular rate and rhythm without murmurs, gallops, or rubs. RESPIRATORY: Clear to auscultation. Breath sounds equal bilaterally. No wheezes, rales, or rhonchi. SKIN: warm, Dry, intact with no suspicious lesions or rash, good texture and turgor. NEURO: awake, alert, and oriented to person, place and time. There were no obvious focal neurologic abnormalities. EXTREMITIES: No joint tenderness, effusion, or edema noted. Course Course Level of Care: Express Care Visit Vital Signs Vital signs: Vital Signs Temperature 37.1 C 05/05/24 13:26 Pulse Rate 78 05/05/24 13:26 Respiratory Rate 16 05/05/24 13:26 Blood Pressure 141/64 H 05/05/24 13:26 Pulse Oximetry 100 05/05/24 13:26 Oxygen Delivery Room Air 05/05/24 13:26 Temperature 37.1 C 05/05/24 13:26 Pulse Rate 78 05/05/24 13:26 Respiratory Rate 16 05/05/24 13:26 Blood Pressure 141/64 H 05/05/24 13:26 Pulse Oximetry 100 05/05/24 13:26 Oxygen Delivery Room Air 05/05/24 13:26 Reviewed Medical Decision Making MDM Narrative Medical decision making narrative: patient is well-appearing. Patient's symptoms resolved. Recommend follow-up with primary care physician as needed. Patient is aware of diagnosis, understands and agrees to treatment plan. Anticipatory guidance given. Patient agrees to follow-up as directed and is aware of reasons to seek care at the emergency department. Portions of this record may have been created with voice recognition software Vital Signs Vital Signs: Vital Signs Temperature 37.1 C 05/05/24 13:26 Pulse Rate 78 05/05/24 13:26 Respiratory Rate 16 05/05/24 13:26 Blood Pressure 141/64 H 05/05/24 13:26 Pulse Oximetry 100 05/05/24 13:26 Oxygen Delivery Room Air 05/05/24 13:26 Temperature 37.1 C 05/05/24 13:26 Pulse Rate 78 05/05/24 13:26 Respiratory Rate 16 05/05/24 13:26 Blood Pressure 141/64 H 05/05/24 13:26 Pulse Oximetry 100 05/05/24 13:26 Oxygen Delivery Room Air 05/05/24 13:26 Discharge Plan Discharge Clinical Impression: Well adult health check, Encounter to obtain excuse from work Patient Disposition: Home, Self-Care Condition: Stable Instructions: Dizziness (ED) Additional Instructions: If symptoms of dizziness return follow-up with your primary care physician for further evaluation. Patient Language: Nepali Follow-up/Referrals: Parveen,Keyur Swain MD [Primary Care Provider] - Stand Alone Forms: Work/School Release IP Time of Disposition: 13:42
== END 2024-05-05 13:46 | disposition home or self-care (01) ==
PROVIDERS: Emergency Provider Nurse Practitioner Family; PCP Family Medicine
DX: R42 Dizziness and giddiness (principal); Z02.79 Encounter for issue of other medical certificate
CPT/HCPCS: 99211; G0463

== ENCOUNTER 2024-09-05 10:30 | Emergency (ER) | payer SELFPAY ==
--- NOTE | 2024-09-05 10:38 | ED_ITS ---
HPI - URI/Sore Throat General Chief Complaint: Upper Respiratory Infection Stated Complaint: sorethroat, congestion, lt earache Time Seen by Provider: 09/05/24 10:38 Source: patient Mode of arrival: ambulatory Limitations: no limitations History of Present Illness HPI Narrative: Ubaldo is a 24-year-old male patient presenting to the clinic today with complaints of sore throat, cough, left ear pain, and congestion x3 days. He reports ear pain started yesterday. [place] feverish. Denies any chest pain or shortness of breath. MD elicited complaint: sore throat and nasal congestion Related Data Allergies Allergy/AdvReac Type Severity Reaction Status Date / Time No Known Allergies Allergy Verified 09/05/24 10:50 Review of Systems Review of Systems: Pertinent positives per HPI. Patient denies any rash, headache, visual changes, dizziness, shortness of breath, chest pain, palpitations, nausea, vomiting, diarrhea, constipation, abdominal pain, or any urinary issues. PMFSH Past Medical History Medical History IBS (irritable bowel syndrome) Anxiety Asthma as child Surgical History Surgical History No history of previous surgery Family History Family History Father Kidney stones Social History Social History Smoking status: Never smoker Alcohol intake: unknown Substance use type: marijuana Living arrangements: with family Gender identity (if verbalized by the patient): Male Comments At the time of my signature, I reviewed and agree with the nursing past medical, surgical, social, and family history. There is no relevant family history pertinent to the patient complaint. Exam Narrative: General: Well-developed, well nourished, in no apparent distress Head: Normocephalic, atraumatic Eyes: Pupils equally round and reactive to light bilaterally, EOM intact, sclera and conjunctive clear, no discharge, lids normal Ears: Left TMs intact, bulging, red, right TM intact and congested, ear canals clear, no drainage, grossly hearing normal. Nose: Nares patent, clear nasal discharge, mild inflammation, no sinus tenderness. Mouth: Oral pharynx red without lesions or masses, good dentition, MMM. Neck: Supple, trachea midline, no enlargement of anterior or posterior cervical nodes, no thyroid masses or goiter palpable. Cardio: Regular rate and rhythm, s1 and s2 normal, no murmur appreciated. Resp: Clear to auscultation bilaterally, no rhonchi, rales, wheezing or rubs Course Course Emergency Course: Portions of this record may have been created with voice recognition software. Level of Care: Express Care Visit Vital Signs Vital signs: Vital Signs Temperature 36.5 C 09/05/24 10:45 Pulse Rate 75 09/05/24 10:45 Respiratory Rate 16 09/05/24 10:45 Blood Pressure 136/55 L 09/05/24 10:45 Pulse Oximetry 100 09/05/24 10:45 Oxygen Delivery Room Air 09/05/24 10:45 Temperature 36.5 C 09/05/24 10:45 Pulse Rate 75 09/05/24 10:45 Respiratory Rate 16 09/05/24 10:45 Blood Pressure 136/55 L 09/05/24 10:45 Pulse Oximetry 100 09/05/24 10:45 Oxygen Delivery Room Air 09/05/24 10:45 Vital signs reviewed MDM - URI/Sore Throat MDM Narrative Medical decision making narrative: At the time of visit patient is resting comfortably on the exam table. Patient appears to be nontoxic. Plan: Patient has a left otitis media, pharyngitis, URI. Prescription for amoxicillin was sent to the pharmacy. Work note was given. Supportive measures were discussed with the patient and they voiced understanding discharge instructions and agrees to treatment plan. Return precautions reviewed Differential Diagnosis Differential diagnosis: Likely upper respiratory infection, otitis media, sinusitis, viral infection, bronchitis, influenza, pharyngitis and other (COVID) Discharge Plan Discharge Clinical Impression: Upper respiratory infection Qualifiers: URI type: unspecified URI Qualified Code(s): J06.9 - Acute upper respiratory infection, unspecified Pharyngitis Qualifiers: Pharyngitis/tonsillitis etiology: unspecified etiology Qualified Code(s): J02.9 - Acute pharyngitis, unspecified Otitis media Qualifiers: Otitis media type: suppurative Chronicity: acute Laterality: left Recurrence: non-recurrent Spontaneous tympanic membrane rupture: without spontaneous rupture Qualified Code(s): H66.002 - Acute suppurative otitis media without spontaneous rupture of ear drum, left ear Patient Disposition: Home Condition: Stable Instructions: Antibiotic Form, Pharyngitis (ED), Ear Infection (ED), Cold Symptoms (ED) Additional Instructions: Take prescription medications only as prescribed-amoxicillin Increase fluids and stay well hydrated Tylenol/motrin for pain/fever Flonase and OTC antihistamines as directed Vicks vapor rub to open sinuses Sinus rinses for congestion Cepacol spray, cough drops, throat lozenges, warm tea with honey/lemon, gargle salt water to soothe throat BRAT diet for diarrhea Clear liquids x 24 hours then advance as tolerated for nausea/vomiting Go to the ED if you develop a worsening in your condition- high fever not controlled by Tylenol or Motrin, dehydration, weakness, lethargy, shortness of breath, or chest pain. Follow up with your PCP in 3-5 days if symptoms persist. Patient Language: Polish Prescriptions: New amoxicillin 875 mg tablet 875 mg PO Q12H 10 Days Qty: 20 0RF Follow-up/Referrals: Parveen,Keyur Swain MD [Primary Care Provider] - Stand Alone Forms: Work/School Release IP Time of Disposition: 10:54 Quality NIHSS Nursing Documentation ED NIHSS nursing documentation: reviewed/agree
[2024-09-05 10:45] VITALS: BP 136/55; PULSE 75; RESP 16; TEMP 36.5; O2SAT 100
== END 2024-09-05 11:00 | disposition home or self-care (01) ==
PROVIDERS: Emergency Provider Nurse Practitioner Family; PCP Family Medicine
DX: J06.9 Acute upper respiratory infection, unspecified (principal); J02.9 Acute pharyngitis, unspecified; H66.002 Acute suppurative otitis media without spontaneous rupture of ear drum, left ear
CPT/HCPCS: 99213; G0463